=== PATIENT | male | born 1960 | race Caucasian/White ===

== ENCOUNTER 2017-03-03 02:31 | Emergency (ER) | payer MEDICARE, MEDICAID ==
[~2017-03-03] VITALS: Ht 172.7 cm; Wt 112.1 kg
[~2017-03-03 02:31] MED LIST: ALBU8.5H5 INH
[2017-03-03] MEDS ORDERED: BICILLIN-LA 1,200,000 UNITS/2 ML IM ONE (03:00)
[2017-03-03] MEDS ORDERED: DEXAMETHASONE 4 MG TABLET PO ONE (03:00)
[2017-03-03] MEDS ORDERED: DEXAMETHASONE 4 MG TABLET ONE (03:06)
[2017-03-03 03:22] VITALS: BP 132/82
== END 2017-03-03 03:25 | disposition home or self-care (01) ==
LOC: ED 03:17
DX: J03.90 Acute tonsillitis, unspecified (principal); F20.9 Schizophrenia, unspecified; F31.9 Bipolar disorder, unspecified; J44.9 Chronic obstructive pulmonary disease, unspecified
CPT/HCPCS: 96372; 99283; J0561

== ENCOUNTER 2017-09-18 07:26 | Emergency (ER) | payer MEDICARE, MEDICAID ==
[~2017-09-18] VITALS: Ht 172.7 cm; Wt 108.7 kg
[2017-09-18 07:27] VITALS: BP 142/81
[2017-09-18] MEDS ORDERED: AMOXICILLIN 500 MG CAPSULE PO ONE (08:30)
== END 2017-09-18 08:28 | disposition home or self-care (01) ==
LOC: ED 08:21
DX: K08.89 Other specified disorders of teeth and supporting structures (principal); J44.9 Chronic obstructive pulmonary disease, unspecified; I10 Essential (primary) hypertension; F31.9 Bipolar disorder, unspecified
CPT/HCPCS: 99283

== ENCOUNTER 2017-10-29 09:02 | Emergency (ER) | payer MEDICARE, MEDICAID ==
[~2017-10-29] VITALS: Ht 172.7 cm; Wt 107.0 kg
[2017-10-29] MEDS ORDERED: LIDOCAINE 1%, 20ML ONE (09:15)
[2017-10-29] MEDS ORDERED: DIPH,PERTUSS(ACELL),TET VAC/PF 0.5 ML IM-VACC ONE ×2 (09:15→09:30)
[2017-10-29] MEDS ORDERED: LIDOCAINE 1%, 20ML INFIL ONE (09:30)
[2017-10-29] MEDS ORDERED: CEFAZOLIN PMX 1GM/50ML 50 ML IV ONE (09:30)
[2017-10-29] MEDS ORDERED: SODIUM CHLORIDE 0.9% 1,000ML IVBOLUS ONE (09:30)
[2017-10-29] MEDS ORDERED: SODIUM CHLORIDE FLUSH 10ML SYR IVF ONE (09:30)
[2017-10-29] MEDS ORDERED: ONDANSETRON 2MG/ML, 2ML IVPush ONE (09:30)
[2017-10-29] MEDS ORDERED: MORPHINE SULFATE 4 MG/ML, 1ML IVPush ONE (09:30)
[2017-10-29] MEDS ORDERED: ONDANSETRON 2MG/ML, 2ML ONE (10:13)
[2017-10-29] MEDS ORDERED: morphine SULFATE 10 MG/ML, 1ML ONE (10:13)
[2017-10-29] MEDS ORDERED: CEFAZOLIN 1,000 MG ONE (10:38)
[2017-10-29] MEDS ORDERED: CEFAZOLIN PMX 1GM/50ML 50 ML ONE (10:41)
[2017-10-29] MEDS ORDERED: BACITRACIN ZINC OINT 500U/GM, 0.9 GM ONE (12:27)
[2017-10-29 12:58] VITALS: BP 150/84
== END 2017-10-29 13:04 | disposition home or self-care (01) ==
LOC: ED 10:18
DX: S41.012A Laceration without foreign body of left shoulder, initial encounter (principal); J44.9 Chronic obstructive pulmonary disease, unspecified; I10 Essential (primary) hypertension; W26.0XXA Contact with knife, initial encounter; Y93.89 Activity, other specified; Y92.89 Other specified places as the place of occurrence of the external cause; Y99.9 Unspecified external cause status
CPT/HCPCS: 12002; 73020; 82962; 90471; 90715; 96361; 96365; 96375; 99284; J0690; J2405; J3490; J7030

== ENCOUNTER 2018-02-03 06:47 | Emergency (ER) | payer MEDICARE, MEDICAID ==
[~2018-02-03] VITALS: Ht 172.7 cm; Wt 107.0 kg
[2018-02-03] MEDS ORDERED: FAMOTIDINE 20 MG TABLET ONE (07:18)
[2018-02-03 07:24] VITALS: BP 131/79
[2018-02-03] MEDS ORDERED: FAMOTIDINE 20 MG TABLET PO ONE (07:30)
[2018-02-03] MEDS ORDERED: BACITRACIN ZINC OINT 500U/GM, 0.9 GM ONE (07:51)
== END 2018-02-03 08:06 ==
LOC: ED 07:08
DX: L24.9 Irritant contact dermatitis, unspecified cause (principal); L01.01 Non-bullous impetigo; J44.9 Chronic obstructive pulmonary disease, unspecified; I10 Essential (primary) hypertension
CPT/HCPCS: 99284; J7512; Q0177

== ENCOUNTER 2018-02-12 16:23 | Emergency (ER) | payer MEDICARE, MEDICAID ==
[~2018-02-12] VITALS: Ht 172.7 cm; Wt 107.8 kg
[2018-02-12] MEDS ORDERED: CEPHALEXIN 500 MG CAPSULE ONE (17:18)
[2018-02-12] MEDS ORDERED: SULFAMETH./TRIMETHOPRIM DS 800MG/160MG TABLET ONE (17:18)
[2018-02-12 17:21] VITALS: BP 158/83
[2018-02-12] MEDS ORDERED: CEPHALEXIN 500 MG CAPSULE PO ONE (17:30)
[2018-02-12] MEDS ORDERED: SULFAMETH./TRIMETHOPRIM DS 800MG/160MG TABLET PO ONE (17:30)
== END 2018-02-12 17:30 | disposition home or self-care (01) ==
LOC: ED 17:00
DX: L20.9 Atopic dermatitis, unspecified (principal); L03.113 Cellulitis of right upper limb; I10 Essential (primary) hypertension; F17.200 Nicotine dependence, unspecified, uncomplicated
CPT/HCPCS: 99283

== ENCOUNTER 2019-03-11 06:13 | Emergency (ER) | payer MEDICARE, MEDICAID ==
[~2019-03-11] VITALS: Ht 172.7 cm; Wt 125.5 kg
--- NOTE | 2019-03-11 06:26 | NUR ---
PT. ADAMANTLY REFUSED W/C TO GET BACK TO ROOM. STATES "YOU WOULD HAVE TO CUT BOTH OF MY LEGS OFF TO GET ME IN A W/C". PT. DENIES SOB/CP. AUDIBLE WHEEZING.
--- NOTE | 2019-03-11 06:30 | NUR ---
given gown pt is off the pants d/t knee pain
--- NOTE | 2019-03-11 06:43 | NUR ---
left knee pain otherwise vss stable
[2019-03-11 07:16] VITALS: BP 133/88
--- NOTE | 2019-03-11 07:17 | NUR ---
Late note entery from 0655: Recieved bedside report from LANA Briggs. All questions answered. Assuming care of pt.
--- NOTE | 2019-03-11 07:17 | NUR ---
Pt resting on [place] requesting pain medicaiton. Per pt, "about 15 years ago I was treated at [facility] and they gave me morphine for a groin injury. It helped alot." NADN. Pt connected to NIBP and continous pulse ox. Pt wearing face mask for cough. Bed rails are up, call light in pt's hand. Pt request to watch "the news".
--- NOTE | 2019-03-11 07:23 | NUR ---
Pt states, "I took a percocet about 24 hours ago. Can you please call Lucina, my girlfriend at [phone]?" Addendum: 03/11/19 at 0804 by [facility] aware of pt's medication request.
[2019-03-11] MEDS ORDERED: HYDROcodone/APAP 5/325 TABLET PO ONE (08:30)
[2019-03-11] MEDS ORDERED: HYDROcodone/APAP 5/325 TABLET ONE (08:57)
--- NOTE | 2019-03-11 09:41 | NUR ---
Patient given discharge instructions and they have confirmed that they understand the instructions. Patient ambulatory with steady gait with crutches. Pt left with discharge paperwork, prescription, and all personal belongings. Pt left with taxi voucher.
== END 2019-03-11 09:44 | disposition home or self-care (01) ==
LOC: ED 09:41
DX: M25.562 Pain in left knee (principal); J00 Acute nasopharyngitis [common cold]
CPT/HCPCS: 99283

== ENCOUNTER 2019-03-11 21:44 | Emergency (ER) | payer MEDICARE, MEDICAID ==
[~2019-03-11] VITALS: Ht 172.7 cm; Wt 120.0 kg
[2019-03-11 21:44] VITALS: BP 139/89
--- NOTE | 2019-03-11 21:44 | NUR ---
Pt BIB EMS for left leg pain x "a few days" for which he was seen this morning and discharged with an JULIA wrap, naproxen, and Mallard. Pt denies any acute traumatic event, but recalls that before his leg started hurting he was carrying heavy boxes up and down stairs. Pt states that upon d/c he went home and slept x 5 hours and when he woke up his leg had increased swelling and increased pain especially when attempting to ambulate. Pt also c/o of some SOB, pt speaking full sentence, Sp02 WNL. Pt denies any history of blood clots, recent surgery, or recent travel. Pt is a poor historian and non-compliant on any medications.
--- NOTE | 2019-03-11 21:55 | NUR ---
EDT at bedside for EKG.
[2019-03-11] MEDS ORDERED: ACETAMINOPHEN 500 MG TABLET PO ONE (22:00)
[2019-03-11] MEDS ORDERED: PLEASE ENTER HEIGHT AND WEIGHT MC SCH (22:00)
--- NOTE | 2019-03-11 22:13 | NUR ---
Pt to imaging, with tech, via guearl.
--- NOTE | 2019-03-11 22:32 | NUR ---
Dr. Vo at bedside to discuss ED findings and d/c information.
[2019-03-11] MEDS ORDERED: HYDROcodone/APAP 5/325 TABLET ONE (22:43)
[2019-03-11] MEDS ORDERED: HYDROcodone/APAP 5/325 TABLET PO ONE (23:00)
--- NOTE | 2019-03-11 23:03 | NUR ---
Patient/Caregiver given discharge instructions and they have confirmed that they understand the instructions. Patient ambulatory with shuffled gait. Pt given bus pass for safe discharge.
[2019-03-11] MEDS ORDERED: PLEASE ENTER ALLERGIES MC SCH (23:30)
== END 2019-03-11 23:05 | disposition home or self-care (01) ==
LOC: ED 22:36
DX: M25.562 Pain in left knee (principal); M79.662 Pain in left lower leg; F17.200 Nicotine dependence, unspecified, uncomplicated; F31.9 Bipolar disorder, unspecified; I10 Essential (primary) hypertension; J44.9 Chronic obstructive pulmonary disease, unspecified
CPT/HCPCS: 93005; 99284

== ENCOUNTER 2020-12-04 22:21 | Emergency (ER) | payer MEDICARE, MEDICAID ==
[~2020-12-04] VITALS: Ht 172.7 cm; Wt 149.9 kg
--- NOTE | 2020-12-04 23:15 | NUR ---
cc of cough and cp 10/10 for 1 month that has worsened today. pt states it is in the center of chest. pt resting in [facility] requesting to watch the news
[2020-12-04 23:31] LABS: BASOPHILS % (AUTO) 1 % (0-1); EOSINOPHILS % (AUTO) 2 % (1-7); LYMPHOCYTES % (AUTO) 16 % (22-44); MEAN CORPUSCULAR HEMOGLOBIN 31.4 pg (27.5-34.5); MEAN PLATELET VOLUME 9.4 fL (7.4-10.4); MONOCYTES % (AUTO) 10 % (2-9); NEUTROPHILS % (AUTO) 72 % (42-75); PLATELET COUNT 259 x10^3/uL (130-400); RED CELL DISTRIBUTION WIDTH 14.3 % (9.4-14.8)
[2020-12-04 23:32] LABS: MD NO
[2020-12-04 23:36] LABS: ALBUMIN 3.5 g/dL (3.4-5.0); ANION GAP 4 mmol/L (5-15); CALCIUM 9.2 mg/dL (8.5-10.1); CHLORIDE 112 mmol/L (98-107)
[2020-12-04 23:42] LABS: ALANINE AMINOTRANSFERASE 45 U/L (12-78); ALKALINE PHOSPHATASE 93 U/L (45-117); BILIRUBIN,TOTAL 0.4 mg/dL (0.2-1.0); TROPONIN I < 0.015 ng/mL (0.000-0.045)
[2020-12-05 00:29] VITALS: BP 130/84
== END 2020-12-05 00:41 | disposition home or self-care (01) ==
LOC: ED 12-05 00:04
DX: R06.00 Dyspnea, unspecified (principal); R05 Cough; Z20.822 Contact with and (suspected) exposure to COVID-19; E66.01 Morbid (severe) obesity due to excess calories; I10 Essential (primary) hypertension; J44.9 Chronic obstructive pulmonary disease, unspecified; F17.200 Nicotine dependence, unspecified, uncomplicated; Z68.41 Body mass index [BMI] 40.0-44.9, adult
CPT/HCPCS: 36415; 71045; 80053; 83880; 84484; 85025; 87635; 93005; 99285

== ENCOUNTER 2021-01-31 12:31 | Emergency (ER) | payer MEDICARE, MEDICAID ==
[~2021-01-31] VITALS: Ht 172.7 cm; Wt 150.5 kg
--- NOTE | 2021-01-31 12:53 | NUR ---
patient was here 6 weeks ago and states had covid at that time. he states since then he has felt more of same, cough/congestion/weak/sob.
--- NOTE | 2021-01-31 13:40 | NUR ---
patient moaning and groaning and coughing perfusely. started iv. kleenex given, states he has to constantly blow his nose. on monitor, rails up
--- NOTE | 2021-01-31 13:46 | NUR ---
anna set #1 cultures. placed on 2 liters oxygen, sat's 934% avg ra rr 22 Addendum: 01/31/21 at 1347 by KALPESH correction sat 94% average
--- NOTE | 2021-01-31 14:00 | NUR ---
BEDSIDE REPORT FROM LAYO SCHWARTZ.
[2021-01-31 14:01] LABS: BASOPHILS % (AUTO) 1 % (0-1); EOSINOPHILS % (AUTO) 2 % (1-7); LYMPHOCYTES % (AUTO) 14 % (22-44); MD NO; MEAN CORPUSCULAR HEMOGLOBIN 30.9 pg (27.5-34.5); MEAN CORPUSCULAR HGB CONC 33.4 g/dL (33.2-36.2); MEAN PLATELET VOLUME 8.9 fL (7.4-10.4); MONOCYTES % (AUTO) 10 % (2-9); NEUTROPHILS % (AUTO) 73 % (42-75); PLATELET COUNT 273 x10^3/uL (130-400); RED BLOOD COUNT 5.05 x10^6/uL (4.38-5.82); RED CELL DISTRIBUTION WIDTH 14.9 % (9.4-14.8)
[2021-01-31] MEDS ORDERED: methylPREDNISolone SOD SUCC 125 MG/2 ML ONE (14:11)
[2021-01-31] MEDS ORDERED: ALBUTEROL/IPRATROPIUM 2.5MG/0.5MG, 3 ML ONE (14:11)
[2021-01-31] MEDS ORDERED: ALBUTEROL/IPRATROPIUM 2.5MG/0.5MG, 3 ML NPPB ONE (14:30)
--- NOTE | 2021-01-31 14:46 | NUR ---
PT SLEEPING INTERMITTENTLY, PT STATES HE FEELS BETTER AND CAN BREATHE BETTER. VSS.
[2021-01-31] MEDS ORDERED: methylPREDNISolone SOD SUCC 125 MG/2 ML IV ONE (15:00)
--- NOTE | 2021-01-31 15:20 | NUR ---
DELAY IN PROCESSING LABS, PER DISCUSSION WITH LAB WILL RUN REST OF LABS ORDERED AT THIS TIME.
[2021-01-31 15:28] LABS: ALANINE AMINOTRANSFERASE 36 U/L (12-78); ALBUMIN 3.6 g/dL (3.4-5.0); ANION GAP 9 mmol/L (5-15); CALCIUM 9.2 mg/dL (8.5-10.1); CHLORIDE 108 mmol/L (98-107); CREATININE 0.96 mg/dL (0.7-1.3)
[2021-01-31 15:33] LABS: ALKALINE PHOSPHATASE 110 U/L (45-117); BILIRUBIN,TOTAL 0.5 mg/dL (0.2-1.0); TOTAL PROTEIN 7.5 g/dL (6.4-8.2); TROPONIN I < 0.015 ng/mL (0.000-0.045)
[2021-01-31] MEDS ORDERED: OMNIPAQUE 350 MG/ML, 100ML BOTTLE ONE (15:58)
--- NOTE | 2021-01-31 16:05 | NUR ---
PT BACK FROM CT. SLEEPING IN NAD EQUAL CHEST RISE NOTED. VSS.
--- NOTE | 2021-01-31 16:20 | NUR ---
PT IS IN BED RESTING. VITALS STABLE.
[2021-01-31 16:53] VITALS: BP 149/89
== END 2021-01-31 16:56 | disposition home or self-care (01) ==
LOC: ED 16:50
DX: J44.1 Chronic obstructive pulmonary disease with (acute) exacerbation (principal); R00.0 Tachycardia, unspecified; R60.0 Localized edema; I10 Essential (primary) hypertension
CPT/HCPCS: 36415; 71045; 71275; 80053; 80320; 83605; 83880; 84484; 85025; 87040; 93005; 94640; 96374; 99285; J2930; Q9967; G0480

== ENCOUNTER 2021-03-30 20:19 | Emergency (ER) | payer MEDICARE, MEDICAID ==
[~2021-03-30] VITALS: Ht 172.7 cm; Wt 149.1 kg
--- NOTE | 2021-03-30 20:45 | NUR ---
INITIAL PT CONTACT. PT PRESENTS TO ED C/O SHORTNESS OF BREATH AND CHEST PAIN STARTED APPROX 0800. PT HAS SWELLING TO LOWER EXTREMITIES. +3 PITTING EDEMA TO LOWER EXTREMITIES BILATERAL. STARTED IN SEPTEMBER OF 2020. PT STATES "I WAS SUPPOSED TO FOLLOW UP WITH CARDIOLOGY BUT DIDN'T MAKE THE APPOINTMENT LAST WEEK." PT SUPINE ON GURNEY. RAPID REGULAR RESPIRATIONS WITH OCCASIONAL COUGH. PT PLACED ON CONTINUOUS PULSE OX AND CARDIAC MONITORING. PT DENIES ANY NEEDS AT THIS TIME. CALL LIGHT AND PERSONAL BELONGINGS WITHIN REACH. AWAITING ERP.
[2021-03-30] MEDS ORDERED: SODIUM CHLORIDE FLUSH 10ML SYR IVF ONE (21:30)
[2021-03-30] MEDS ORDERED: MORPHINE SULFATE 4 MG/ML, 1ML IVPush PRN (21:30)
[2021-03-30] MEDS ORDERED: ASPIRIN 81 MG TABLET CHEW PO ONE (21:30)
[2021-03-30] MEDS ORDERED: ONDANSETRON 2MG/ML, 2ML IVPush ONE (21:30)
[2021-03-30] MEDS ORDERED: ASPIRIN 81 MG TABLET CHEW ONE (21:42)
[2021-03-30 21:50] LABS: BASOPHILS % (AUTO) 1 % (0-1); EOSINOPHILS % (AUTO) 1 % (1-7); LYMPHOCYTES % (AUTO) 16 % (22-44); MEAN CORPUSCULAR HEMOGLOBIN 31.7 pg (27.5-34.5); MEAN CORPUSCULAR HGB CONC 34.1 g/dL (33.2-36.2); MEAN PLATELET VOLUME 9.1 fL (7.4-10.4); MONOCYTES % (AUTO) 8 % (2-9); NEUTROPHILS % (AUTO) 74 % (42-75); PLATELET COUNT 279 x10^3/uL (130-400); RED BLOOD COUNT 4.92 x10^6/uL (4.38-5.82); RED CELL DISTRIBUTION WIDTH 14.7 % (9.4-14.8)
[2021-03-30 21:53] LABS: MD NO
[2021-03-30 21:55] LABS: ALBUMIN 3.5 g/dL (3.4-5.0); ANION GAP 4 mmol/L (5-15); CALCIUM 9.2 mg/dL (8.5-10.1); CHLORIDE 108 mmol/L (98-107)
[2021-03-30 22:01] VITALS: BP 139/87
[2021-03-30 22:01] LABS: ALANINE AMINOTRANSFERASE 38 U/L (12-78); ALKALINE PHOSPHATASE 98 U/L (45-117); BILIRUBIN,TOTAL 0.3 mg/dL (0.2-1.0); CREATININE 0.84 mg/dL (0.7-1.3); TOTAL PROTEIN 7.4 g/dL (6.4-8.2); TROPONIN I < 0.015 ng/mL (0.000-0.045)
--- NOTE | 2021-03-30 22:01 | NUR ---
PT UPRIGHT ON YUDI PHILLIPS VSS. PT REPORTS "ALL THE PAIN HAS RESOLVED AT THIS TIME." PT REFUSING WHIZZER HAND. PT DENIES ANY ADDITIONAL NEEDS AT THIS TIME. CALL LIGHT AND BELONGINGS WITHIN REACH.
[2021-03-30] MEDS ORDERED: FUROSEMIDE 40 MG/4 ML ONE (22:26)
[2021-03-30] MEDS ORDERED: FUROSEMIDE 40 MG/4 ML IV ONE (22:30)
--- NOTE | 2021-03-30 22:45 | NUR ---
Patient given discharge instructions and they have confirmed that they understand the instructions. Patient ambulatory with steady gait.
== END 2021-03-30 22:46 | disposition home or self-care (01) ==
LOC: ED 21:13
DX: R07.2 Precordial pain (principal); R60.0 Localized edema; R06.02 Shortness of breath; R42 Dizziness and giddiness; R07.89 Other chest pain; J44.9 Chronic obstructive pulmonary disease, unspecified; I10 Essential (primary) hypertension; F17.210 Nicotine dependence, cigarettes, uncomplicated
CPT/HCPCS: 36415; 71045; 80053; 83880; 84484; 85025; 93005; 96374; 99285; 99406; J1940; 96372

== ENCOUNTER 2021-04-22 23:31 | Emergency (ER) | payer MEDICARE, MEDICAID ==
[~2021-04-22] VITALS: Ht 172.7 cm; Wt 154.0 kg
[2021-04-23 00:11] LABS: ALANINE AMINOTRANSFERASE 39 U/L (12-78); ALBUMIN 3.7 g/dL (3.4-5.0); ANION GAP 6 mmol/L (5-15); CALCIUM 8.7 mg/dL (8.5-10.1); CHLORIDE 107 mmol/L (98-107); CREATININE 1.13 mg/dL (0.7-1.3)
[2021-04-23 00:12] LABS: BASOPHILS % (AUTO) 1 % (0-1); EOSINOPHILS % (AUTO) 2 % (1-7); LYMPHOCYTES % (AUTO) 22 % (22-44); MEAN CORPUSCULAR HGB CONC 34.4 g/dL (33.2-36.2); MEAN PLATELET VOLUME 9.6 fL (7.4-10.4); MONOCYTES % (AUTO) 10 % (2-9); NEUTROPHILS % (AUTO) 65 % (42-75); PLATELET COUNT 239 x10^3/uL (130-400); RED BLOOD COUNT 5.13 x10^6/uL (4.38-5.82); RED CELL DISTRIBUTION WIDTH 14.4 % (9.4-14.8)
[2021-04-23 00:13] LABS: MD NO
[2021-04-23 00:15] LABS: ALKALINE PHOSPHATASE 104 U/L (45-117); BILIRUBIN,TOTAL 0.4 mg/dL (0.2-1.0); TOTAL PROTEIN 7.6 g/dL (6.4-8.2); TROPONIN I < 0.015 ng/mL (0.000-0.045)
--- NOTE | 2021-04-23 01:45 | NUR ---
PT BROUGHT BACK TO THIS RNS ROOM AT THIS TIME. PT CHANGED INTO GOWN, REPORTS "I CAME INTO BECAUSE THIS MORNING MY LEGS STARTED CRMAPING SO BAD THAT MY FEET WERE CURLED AND THEN MANOLO GAINED 100 LBS THIS YEAR". PT REPORTS CHEST FEELS THOUGH "MY HEART IS ABOUT TO BURST OUT OF MY CHEST". PT STATES IT STARTED THIS AM. PT HAS EDEMA IN BILATERAL LOWER EXTREMITIES 2-3+ PITTING. PT PLACED ON SPO2/BP/ECG MONITORING. SO AT THE BS. ROCIO GLOVER AT BS FOR EVAL AND POC. WCTM.
[2021-04-23] MEDS ORDERED: FUROSEMIDE 40 MG TABLET PO ONE (02:30)
[2021-04-23] MEDS ORDERED: FUROSEMIDE 40 MG TABLET ONE (02:36)
[2021-04-23 03:17] VITALS: BP 153/88
--- NOTE | 2021-04-23 03:53 | NUR ---
Patient given discharge instructions and they have confirmed that they understand the instructions. Patient ambulatory with steady gait. NAD, all questions answered appropriately, denies additional needs at this time. No personal belongings left in room after discharge.
== END 2021-04-23 03:55 | disposition home or self-care (01) ==
LOC: ED 04-23 03:11
DX: R60.0 Localized edema (principal); G47.33 Obstructive sleep apnea (adult) (pediatric); Z76.0 Encounter for issue of repeat prescription; R07.89 Other chest pain; I11.0 Hypertensive heart disease with heart failure; I50.9 Heart failure, unspecified; J44.9 Chronic obstructive pulmonary disease, unspecified; F17.200 Nicotine dependence, unspecified, uncomplicated
CPT/HCPCS: 36415; 71045; 80053; 83880; 84443; 84484; 85025; 93005; 99285

== ENCOUNTER 2021-04-29 17:17 | Inpatient (IN) | payer MEDICARE, MEDICAID ==
[~2021-04-29] VITALS: Ht 172.7 cm; Wt 150.6 kg
--- NOTE | 2021-04-29 17:25 | NUR ---
DIVISION SALES MANAGER: EKG COMPLETED IN TRIAGE
[2021-04-29] MEDS ORDERED: SODIUM CHLORIDE FLUSH 10ML SYR IVF ONE (18:00)
[2021-04-29 18:06] LABS: BASOPHILS % (AUTO) 1 % (0-1); EOSINOPHILS % (AUTO) 3 % (1-7); LYMPHOCYTES % (AUTO) 16 % (22-44); MD NO; MEAN CORPUSCULAR HEMOGLOBIN 32.4 pg (27.5-34.5); MEAN CORPUSCULAR HGB CONC 34.6 g/dL (33.2-36.2); MEAN PLATELET VOLUME 9.4 fL (7.4-10.4); MONOCYTES % (AUTO) 10 % (2-9); NEUTROPHILS % (AUTO) 70 % (42-75); PLATELET COUNT 257 x10^3/uL (130-400); RED BLOOD COUNT 5.25 x10^6/uL (4.38-5.82); RED CELL DISTRIBUTION WIDTH 14.1 % (9.4-14.8)
--- NOTE | 2021-04-29 18:17 | NUR ---
PT HAS CO SOB, LABORED BREATHING WHILE LAYING ON GURNEY. PT STATES WEIGHT GAIN, SWELLING OF LEGS BILATERALLY. PT DENIES CP OR N/V. CARD MONITOR IN PLACE. IV PLACED. APPLIED 2 L O2. DESAT TO 88% RA
[2021-04-29 18:19] LABS: ALANINE AMINOTRANSFERASE 36 U/L (12-78); ALBUMIN 3.7 g/dL (3.4-5.0); ANION GAP 6 mmol/L (5-15); CALCIUM 9.4 mg/dL (8.5-10.1); CHLORIDE 104 mmol/L (98-107); CREATININE 1.44 mg/dL (0.7-1.3)
[2021-04-29 18:24] LABS: ALKALINE PHOSPHATASE 106 U/L (45-117); BILIRUBIN,TOTAL 0.3 mg/dL (0.2-1.0); TROPONIN I < 0.015 ng/mL (0.000-0.045)
--- NOTE | 2021-04-29 18:32 | NUR ---
PT BACK FROM IMAGING
--- NOTE | 2021-04-29 18:46 | NUR ---
RECEIVED REPORT FROM LANA JONES
[2021-04-29] MEDS ORDERED: ALBU2.5V11 INH (19:18)
[2021-04-29] MEDS ORDERED: FURO40TA6 PO (19:18)
[2021-04-29] MEDS ORDERED: BUDE10.2 INH (19:18)
[2021-04-29] MEDS ORDERED: [UNRECOGNIZED DRUG - REMARK] PO (19:20)
[2021-04-29] MEDS ORDERED: SODIUM CHLORIDE FLUSH 10ML SYR IVF PRN (20:00)
--- NOTE | 2021-04-29 20:20 | NUR ---
HOSPITALIST AT BEDSIDE
[2021-04-29] MEDS ORDERED: POLYETHYLENE GLYCOL 17 GM PACKET PO PRN (20:30)
[2021-04-29] MEDS ORDERED: ONDANSETRON ODT 4 MG PO PRN (20:30)
[2021-04-29] MEDS ORDERED: methylPREDNISolone SOD SUCC 125 MG/2 ML IVPush ONE (20:30)
[2021-04-29] MEDS ORDERED: FUROSEMIDE 40 MG/4 ML IV ONE (20:30)
[2021-04-29] MEDS ORDERED: ACETAMINOPHEN 325 MG TABLET PO PRN (20:30)
[2021-04-29] MEDS ORDERED: BISACODYL 10 MG SUPP PR PRN (20:30)
[2021-04-29] MEDS ORDERED: methylPREDNISolone SOD SUCC 125 MG/2 ML ONE (20:38)
[2021-04-29] MEDS ORDERED: HEPARIN 5,000 UNITS/ML, 1ML ONE (20:39)
[2021-04-29] MEDS ORDERED: FUROSEMIDE 40 MG/4 ML ONE (20:39)
[2021-04-29] MEDS: HEPARIN 5,000 UNITS/ML, 1ML SQ SCH (20:43)
--- NOTE | 2021-04-29 21:16 | NUR ---
PT ASKED FOR SOMETHING TO EAT, THIS RN GOT PT A TURKEY DIET. PT RESTING COMFORATABLY ON GURNEY, DENIES NEEDS AT THIS TIME.
--- NOTE | 2021-04-29 22:35 | NUR ---
CALLED REPORT TO LANA HIGUERA ON MED TELE. PT GOING TO ROOM 492-2
[2021-04-29 22:59] VITALS: BP 119/73
[2021-04-29 23:21] VITALS: BP 119/73
[2021-04-30 02:19] VITALS: BP 141/87
[2021-04-30] MEDS: HEPARIN 5,000 UNITS/ML, 1ML SQ SCH ×3 (04:55→20:49)
[2021-04-30 05:55] LABS: BASOPHILS % (AUTO) 1 % (0-1); EOSINOPHILS % (AUTO) 0 % (1-7); LYMPHOCYTES % (AUTO) 9 % (22-44); MEAN CORPUSCULAR HEMOGLOBIN 32.2 pg (27.5-34.5); MEAN CORPUSCULAR HGB CONC 34.1 g/dL (33.2-36.2); MEAN PLATELET VOLUME 9.9 fL (7.4-10.4); MONOCYTES % (AUTO) 2 % (2-9); NEUTROPHILS % (AUTO) 88 % (42-75); PLATELET COUNT 258 x10^3/uL (130-400); RED BLOOD COUNT 5.06 x10^6/uL (4.38-5.82); RED CELL DISTRIBUTION WIDTH 14.3 % (9.4-14.8)
[2021-04-30 06:02] LABS: ANION GAP 5 mmol/L (5-15); CALCIUM 9.3 mg/dL (8.5-10.1); CHLORIDE 106 mmol/L (98-107)
[2021-04-30 06:18] VITALS: BP 154/83
[2021-04-30 06:24] LABS: MD SCAN
[2021-04-30 06:36] LABS: MICROSCOPIC NOT IND
[2021-04-30] MEDS: ALBUTEROL SULFATE 2.5 MG/3 ML NPPB SCH ×2 (08:22→21:00)
[2021-04-30] MEDS: BUDESONIDE 0.5 MG/2 ML INHA INH SCH ×2 (08:22→21:00)
[2021-04-30] MEDS: SENNA/DOCUSATE TABLET PO SCH (08:38)
[2021-04-30 12:24] VITALS: BP 132/66
[2021-04-30] MEDS ORDERED: FUROSEMIDE 40 MG/4 ML IV ONE (15:30)
[2021-04-30] MEDS: methylPREDNISolone SOD SUCC 40 MG/ML IV SCH (15:50)
[2021-04-30] MEDS ORDERED: NICOTINE 14MG/24 HR PATCH.TD24 TD SCH (16:00)
[2021-04-30] MEDS: CEFTRIAXONE 1,000 MG in DEXTROSE 5% 50 ML IVPB SCH (16:06)
[2021-04-30 19:20] VITALS: BP 130/66
[2021-04-30] MEDS: DOXYCYCLINE 100MG TABLET PO SCH (20:49)
[2021-04-30] MEDS ORDERED: MONTELUKAST 10 MG TABLET PO SCH (21:00)
[2021-05-01] MEDS: methylPREDNISolone SOD SUCC 40 MG/ML IV SCH ×2 (00:59→08:03)
[2021-05-01 01:08] VITALS: BP 101/61
[2021-05-01] MEDS: HEPARIN 5,000 UNITS/ML, 1ML SQ SCH ×2 (05:31→12:22)
[2021-05-01] MEDS ORDERED: PANTOPRAZOLE 40MG TABLET PO SCH (06:00)
[2021-05-01 06:05] LABS: MEAN CORPUSCULAR HEMOGLOBIN 31.8 pg (27.5-34.5); MEAN CORPUSCULAR HGB CONC 33.9 g/dL (33.2-36.2); MEAN PLATELET VOLUME 9.9 fL (7.4-10.4); PLATELET COUNT 265 x10^3/uL (130-400); RED BLOOD COUNT 4.93 x10^6/uL (4.38-5.82); RED CELL DISTRIBUTION WIDTH 14.2 % (9.4-14.8)
[2021-05-01 06:17] LABS: ANION GAP 7 mmol/L (5-15); CALCIUM 10.1 mg/dL (8.5-10.1); CHLORIDE 101 mmol/L (98-107); CREATININE 1.08 mg/dL (0.7-1.3)
[2021-05-01 06:36] LABS: MD YES
[2021-05-01 06:37] LABS: <PLATELET ESTIMATE> ADEQUATE; <PLT MORPHOLOGY> NORMAL PLT MORPH; <RBC MORPHOLOGY> NORMAL; BAND#(MANUAL) 0.18 x10^3/uL; BANDS%(MANUAL) 1 % (0-7); LYMPHS% (MANUAL) 4 % (22-44); MONOS#(MANUAL) 0.35 x10^3/uL (0.3-2.7); MONOS% (MANUAL) 2 % (2-9); SEG#(MANUAL) 16.28 x10^3/uL (1.8-6.8); SEGS% (MANUAL) 93 % (42-75)
[2021-05-01 07:33] VITALS: BP 150/80
[2021-05-01] MEDS: DOXYCYCLINE 100MG TABLET PO SCH (08:03)
[2021-05-01] MEDS: SENNA/DOCUSATE TABLET PO SCH (08:05)
[2021-05-01] MEDS: ALBUTEROL SULFATE 2.5 MG/3 ML NPPB SCH (09:40)
[2021-05-01] MEDS: BUDESONIDE 0.5 MG/2 ML INHA INH SCH (09:40)
[2021-05-01] MEDS ORDERED: INSULIN LISPRO 100 UNITS/ML, PEN SQ-INSULIN SCH (11:00)
[2021-05-01] MEDS ORDERED: MONT10TA17 PO (11:14)
[2021-05-01] MEDS ORDERED: FURO40TA6 PO (11:14)
[2021-05-01] MEDS ORDERED: AMOX1TAB64 PO (11:14)
[2021-05-01] MEDS ORDERED: BUDE10.2 INH (11:14)
[2021-05-01] MEDS ORDERED: PANT40TA6 PO (11:14)
[2021-05-01] MEDS ORDERED: SENN-211 PO (11:14)
[2021-05-01] MEDS ORDERED: NICO-486 TD (11:14)
[2021-05-01] MEDS: CEFTRIAXONE 1,000 MG in DEXTROSE 5% 50 ML IVPB SCH (11:17)
[2021-05-01] MEDS ORDERED: ALBU2.5V11 INH (11:26)
[2021-05-01] MEDS ORDERED: PRED10TA PO (11:26)
[2021-05-01 12:24] VITALS: BP 165/103
== END 2021-05-01 12:50 | disposition home or self-care (01) | DRG 190 ==
LOC: ED 18:00 → EDIP 20:00 → 4EST 22:40 → DCLOUNGE 05-01 12:37
PROVIDERS: ADMIT Family Medicine; ATTEND Internal Medicine
DX: J44.1 Chronic obstructive pulmonary disease with (acute) exacerbation (principal); N17.0 Acute kidney failure with tubular necrosis; I50.33 Acute on chronic diastolic (congestive) heart failure; E66.2 Morbid (severe) obesity with alveolar hypoventilation; I13.0 Hypertensive heart and chronic kidney disease with heart failure and stage 1 through stage 4 chronic kidney disease, or unspecified chronic kidney disease; Z68.43 Body mass index [BMI] 50.0-59.9, adult; J20.9 Acute bronchitis, unspecified; J44.0 Chronic obstructive pulmonary disease with (acute) lower respiratory infection; F17.210 Nicotine dependence, cigarettes, uncomplicated; R09.02 Hypoxemia; N18.9 Chronic kidney disease, unspecified
CPT/HCPCS: 36415; 71045; 80048; 80053; 81003; 83036; 83735; 83880; 84100; 84484; 85025; 85379; 93005; 94640; 96374; 96375; 99285; C8929; G0378; J0696; J1644; J1940; J7613; J7626; Q9957; J1815; J2920; J2930

== ENCOUNTER 2021-05-30 07:06 | Emergency (ER) | payer MEDICARE, MEDICAID ==
[~2021-05-30] VITALS: Ht 172.7 cm; Wt 170.0 kg
[~2021-05-30 07:06] MED LIST changes: +ALBU2.5V11 INH; +AMOX1TAB64 PO; +BUDE10.2 INH; +FURO40TA6 PO; +MONT10TA17 PO; +NICO-486 TD; +PANT40TA6 PO; +PRED10TA PO; +SENN-211 PO; +[UNRECOGNIZED DRUG - REMARK] PO
[2021-05-30] MEDS ORDERED: FUROSEMIDE 40 MG/4 ML ONE (07:19)
[2021-05-30] MEDS ORDERED: SODIUM CHLORIDE FLUSH 10ML SYR IVF ONE (07:30)
[2021-05-30] MEDS ORDERED: FUROSEMIDE 40 MG/4 ML IV ONE (07:30)
--- NOTE | 2021-05-30 07:30 | NUR ---
DANIEL AFTER RUNNING OUT OF CHF MEDICATIONS AND NOW HAVING SOB. DR. CHRISTINE EVALUATED. PT ATTACHED TO ALL MONITORS AND POSITONED TO COMFORT. VSS. NADN. MEDICATED PER EMAR.
[2021-05-30 08:07] LABS: BASOPHILS % (AUTO) 1 % (0-1); EOSINOPHILS % (AUTO) 2 % (1-7); LYMPHOCYTES % (AUTO) 23 % (22-44); MEAN CORPUSCULAR HGB CONC 33.6 g/dL (33.2-36.2); MEAN PLATELET VOLUME 8.7 fL (7.4-10.4); MONOCYTES % (AUTO) 8 % (2-9); NEUTROPHILS % (AUTO) 67 % (42-75); PLATELET COUNT 252 x10^3/uL (130-400); RED BLOOD COUNT 4.59 x10^6/uL (4.38-5.82); RED CELL DISTRIBUTION WIDTH 14.9 % (9.4-14.8)
[2021-05-30 08:17] LABS: ALANINE AMINOTRANSFERASE 49 U/L (12-78); ALBUMIN 3.3 g/dL (3.4-5.0); ANION GAP 3 mmol/L (5-15); CHLORIDE 111 mmol/L (98-107); CREATININE 1.19 mg/dL (0.7-1.3)
[2021-05-30 08:21] LABS: ALKALINE PHOSPHATASE 94 U/L (45-117); BILIRUBIN,TOTAL 0.3 mg/dL (0.2-1.0); TROPONIN I < 0.015 ng/mL (0.000-0.045)
[2021-05-30 08:36] VITALS: BP 122/66
--- NOTE | 2021-05-30 08:36 | NUR ---
PT RESTING IN BED VSS. NADN.
== END 2021-05-30 09:22 | disposition home or self-care (01) ==
LOC: ED 07:09
DX: R06.00 Dyspnea, unspecified (principal); J44.9 Chronic obstructive pulmonary disease, unspecified; Z76.0 Encounter for issue of repeat prescription; I11.0 Hypertensive heart disease with heart failure; I50.9 Heart failure, unspecified; R07.9 Chest pain, unspecified; Z72.9 Problem related to lifestyle, unspecified; R94.31 Abnormal electrocardiogram [ECG] [EKG]
CPT/HCPCS: 36415; 71045; 80053; 83880; 84484; 85025; 93005; 96374; 99285; J1940

== ENCOUNTER 2021-08-01 05:28 | Emergency (ER) | payer MEDICARE, MEDICAID ==
[~2021-08-01] VITALS: Ht 170.2 cm; Wt 150.0 kg
[2021-08-01] MEDS ORDERED: ASPIRIN 81 MG TABLET CHEW PO ONE (06:00)
[2021-08-01] MEDS ORDERED: SODIUM CHLORIDE FLUSH 10ML SYR IVF ONE (06:00)
[2021-08-01] MEDS ORDERED: ASPIRIN 81 MG TABLET CHEW ONE (06:23)
[2021-08-01 06:51] LABS: BASOPHILS % (AUTO) 1 % (0-1); EOSINOPHILS % (AUTO) 3 % (1-7); LYMPHOCYTES % (AUTO) 24 % (22-44); MEAN CORPUSCULAR HEMOGLOBIN 31.5 pg (27.5-34.5); MEAN CORPUSCULAR HGB CONC 33.3 g/dL (33.2-36.2); MEAN PLATELET VOLUME 9.3 fL (7.4-10.4); MONOCYTES % (AUTO) 10 % (2-9); NEUTROPHILS % (AUTO) 61 % (42-75); PLATELET COUNT 253 x10^3/uL (130-400); RED BLOOD COUNT 4.73 x10^6/uL (4.38-5.82); RED CELL DISTRIBUTION WIDTH 13.7 % (9.4-14.8)
--- NOTE | 2021-08-01 06:58 | NUR ---
REPORT OF PT FROM LANA FLORES AND ASSUMING CARE OF PT AT THIS TIME.
--- NOTE | 2021-08-01 06:59 | NUR ---
Report to Jose Miguel SCHWARTZ
[2021-08-01 07:01] LABS: ALBUMIN 3.2 g/dL (3.4-5.0); CALCIUM 9.5 mg/dL (8.5-10.1); CREATININE 0.83 mg/dL (0.7-1.3)
[2021-08-01 07:04] LABS: TROPONIN I < 0.015 ng/mL (0.000-0.045)
[2021-08-01 07:12] LABS: ANION GAP 4 mmol/L (5-15); CHLORIDE 108 mmol/L (98-107)
--- NOTE | 2021-08-01 07:42 | NUR ---
PT D/C WITH D/C SUMMARY AND SCRIPTS. ALL QUESTIONS ANSWERED. PT AMBULATES TO REGISTRATION DESK WITH STEADY GAIT FOR D/C HOME AND DENIES ANY NEEDS AT THIS TIME. PT EDUCATED ON NEED FOR ISOLATION/SOCIAL DISTANCING PENDING CURRENT COVID RESULTS AND PT VERBALIZES UNDERSTANDING.
[2021-08-01 07:43] VITALS: BP 157/84
== END 2021-08-01 07:58 | disposition home or self-care (01) ==
LOC: ED 06:30
DX: J15.9 Unspecified bacterial pneumonia (principal); R06.00 Dyspnea, unspecified; Z76.0 Encounter for issue of repeat prescription; Z20.822 Contact with and (suspected) exposure to COVID-19; I11.0 Hypertensive heart disease with heart failure; I50.9 Heart failure, unspecified; J44.9 Chronic obstructive pulmonary disease, unspecified; F17.200 Nicotine dependence, unspecified, uncomplicated
CPT/HCPCS: 36415; 71045; 80048; 82040; 83880; 84484; 85025; 93005; 99285; U0003; U0005